=== PATIENT | male | born 1990 | race American Indian/Alaskan Native ===

== ENCOUNTER 2018-10-28 01:10 | Emergency (ER) | payer SELFPAY ==
[2018-10-28] MEDS ORDERED: BOOSTRIX IM ONE (01:31)
[2018-10-28] MEDS ORDERED: CLEOCIN 600 MG/50 mL 600 MG/50 ML BAG IV ONE (01:32)
[2018-10-28] MEDS ORDERED: NACL 0.9% 1000 ML 1,000 ML IV ONE (01:33)
[2018-10-28 01:55] LABS: Basophils % (Auto) 0.5 % (0.0-1.8); Eosinophils # (Auto) 0.1 K/mm3 (0.0-0.4); Eosinophils % (Auto) 1.7 % (0.0-4.3); Hematocrit 37.8 % (35.5-45.6); Hemoglobin 13.4 gm/dl (11.8-15.2); Lymphocytes # (Auto) 1.7 K/mm3 (1.2-5.4); Mean Corpuscular HGB Conc 35 % (32-34); Mean Corpuscular Volume 98 fl (84-94); Monocytes # (Auto) 0.6 K/mm3 (0.0-0.8); Monocytes % (Auto) 6.8 % (0.0-7.3); Platelet Count 266 K/mm3 (140-440); Red Blood Count 3.85 M/mm3 (3.65-5.03)
[2018-10-28] MEDS ORDERED: ANCEF/NS 1 GM/50 ML 1 GM/50 ML BAG IV ONE (02:00)
[2018-10-28 02:06] LABS: BUN/Creatinine Ratio 19; Blood Urea Nitrogen 13 mg/dL (9-20); Calcium 9.2 mg/dL (8.4-10.2); Hemolysis Index 5
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
[2018-10-28] MEDS ORDERED: TORADOL IV ONE (03:23)
[2018-10-28] MEDS ORDERED: ZOFRAN IV ONE (03:33)
[2018-10-28] MEDS ORDERED: MORPHINE IV ONE (03:33)
[2018-10-28 05:33] VITALS: BP 130/70
== END 2018-10-28 05:34 | disposition home or self-care (01) ==
LOC: EDSEX → ED 01:10
DX: S81.801A Unspecified open wound, right lower leg, initial encounter (principal); Z88.0 Allergy status to penicillin; X58.XXXA Exposure to other specified factors, initial encounter; Y93.89 Activity, other specified; Y92.89 Other specified places as the place of occurrence of the external cause; Y99.8 Other external cause status
CPT/HCPCS: 36415; 73590; 73706; 80048; 85025; 86850; 86900; 86901; 90471; 90715; 96365; 96366; 96375; 99285; J1885; J7030; Q9967; J0690

== ENCOUNTER 2019-06-20 19:43 | Emergency (ER) | payer SELFPAY ==
[2019-06-20 20:09] VITALS: BP 137/93
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
== END 2019-06-20 20:48 | disposition home or self-care (01) ==
LOC: ED 19:43
DX: R25.3 Fasciculation (principal); F17.200 Nicotine dependence, unspecified, uncomplicated; Z79.899 Other long term (current) drug therapy; Z88.0 Allergy status to penicillin
CPT/HCPCS: 99282